=== PATIENT | male | born 1975 | race Caucasian/White ===

== ENCOUNTER 2023-08-15 09:42 | Outpatient (CLI) | payer OTHER, SELFPAY ==
--- NOTE | 2023-08-15 11:11 | W.ANESCHARGE ---
Anesthesia Charges Start Date/Time Anesthesia Start Date: 08/15/23 Anesthesia Start Time: 10:50 Stop Date/Time Anesthesia Stop Date: 08/15/23 Anesthesia Stop Time: 11:11
--- NOTE | 2023-08-15 11:51 | W.ANESCHARGE ---
Anesthesia Charges Start Date/Time Anesthesia Start Date: 08/15/23 Anesthesia Start Time: 10:50 Stop Date/Time Anesthesia Stop Date: 08/15/23 Anesthesia Stop Time: 11:11
== END 2023-08-15 09:43 | disposition home or self-care (01) ==
LOC: OP CLINIC 09:42
PROVIDERS: Visit Provider Internal Medicine
DX: Z12.11 Encounter for screening for malignant neoplasm of colon (principal); Z86.010 Personal history of colon polyps; Z80.0 Family history of malignant neoplasm of digestive organs
CPT/HCPCS: 00811; 00812; 45378; J2704